=== PATIENT | male | born 1955 | race Caucasian/White ===

== ENCOUNTER 2017-01-21 09:55 | Day surgery (SDC) | payer MEDICARE, MEDICAID ==
[2017-01-20 12:20] LABS: HEMATOCRIT 43.7 % (42.0-54.0); HEMOGLOBIN 14.6 g/dL (13.5-17.5); MCH 31.1 pg (26.0-34.0); MCHC 33.4 g/dL (31.0-37.0); MEAN PLATELET VOLUME 9.2 fL (7.4-10.4); RBC 4.7 10x6/uL (4.20-6.10); RDW 13.9 % (11.5-14.5); WBC 11.5 10x3/uL (4.8-10.8)
[~2017-01-21] VITALS: Ht 180.3 cm; Wt 96.6 kg
[~2017-01-21 09:55] MED LIST: BREO ELLIPTA 11 EACH INH; CYCLOBENZAPRINE10 MG PO; EFFEXOR XR75 MG PO; LODINE500 MG PO; NEXIUM40 MG PO; NORVASC5 MG PO; PERCOCET 10/3251 TA1 PO; SINGULAIR10 MG PO; ZESTRIL20 MG PO
[2017-01-21 11:19] VITALS: BP 123/77; Ht 180.3 cm; Wt 96.6 kg
--- NOTE | 2017-01-21 17:32 | NUR ---
1615 IV DC WITH CATHER TIP INTACT
--- NOTE | 2017-02-11 13:25 | OP ---
PATIENT NAME: MITZY WELDON MEDICAL RECORD: [id number] :57 [facility] AD[facility] DATE: SURGEON: LAUREL HEIN MD DATE OF OPERATION: 01/21/2017 PREOPERATIVE DIAGNOSIS: Disc herniation L3-L4, left with bilateral L4 radiculopathy. POSTOPERATIVE DIAGNOSIS: Disc herniation L3-L4, left with bilateral L4 radiculopathy. PROCEDURES: Lumbar laminotomy, medial facetectomy and foraminotomy at L3-L4 with sublaminar decompression bilaterally with L3-L4 discectomy left, METRx retractor, and microscopic illumination. DESCRIPTION OF TECHNIQUE: After induction of general endotracheal anesthesia, the patient was rolled prone on a Benny frame. Lumbar spine was prepped and draped in usual sterile fashion. Fluoroscopic x-ray and spinal needle localized the L3-L4 interspace on the left side. A stab incision was created with a #11 blade and series of dilators were used to advance the METRx retractor at L3-L4 interspace. Level was confirmed with fluoroscopic x-ray. A microscope and Midas Hua drill were used to perform a laminotomy, medial facetectomy, and foraminotomy at L3-L4. Hypertrophied ligamentum flavum was removed with Cloward rongeurs. The dura was decompressed well on this side and there was no obvious free fragment. Disc herniation was removed with pituitary rongeurs. Additional material was removed from the disc space. The spinal canal was sent for additional disc material. Next, the METRx retractor was tilted into the spinous process. This was undermined with the Midas-Hua drill. A sublaminar decompression was carried out with Midas-Hua drill and hypertrophied ligamentum flavum was removed with Cloward rongeurs. Foraminotomy was carried out on the opposite side. Following this, the dura was decompressed well on both sides at L3 and L4 nerve roots and both sides were decompressed well. Meticulous hemostasis was maintained throughout the wound. Wound was irrigated with copious amounts of Ancef irrigant solution. The fascia was closed with 2-0 Vicryl suture, the subdermal layer was closed with 3-0 Vicryl suture. The skin was closed with lucila. A sterile dressing was applied to the wound. The patient was awakened in good condition and taken to recovery. All counts were reported as correct. Estimated blood loss was minimal. TRANSINT:[id number] Voice Confirmation ID: [id number] DOCUMENT ID: [id number] LAUREL HEIN MD at 1325 CC: [id number] DICTATION DATE: 02/04/17 1229 ROULETTE DEALER: 02/04/17 1247 [facility] 01/21/17 [place] [id number]
== END 2017-01-21 17:00 | disposition home or self-care (01) ==
LOC: D.OPS 09:55 → D.PAN 12:00 → D.OPS 12:00
PROVIDERS: Anesthesiology
DX: M51.16 Intervertebral disc disorders with radiculopathy, lumbar region (principal); Z01.812 Encounter for preprocedural laboratory examination

== ENCOUNTER 2018-09-10 05:27 | Day surgery (SDC) | payer MEDICARE, MEDICAID ==
[2018-09-09 14:31] LABS: HEMATOCRIT 38.5 % (42.0-54.0); HEMOGLOBIN 12.8 g/dL (13.5-17.5); MCH 29.4 pg (26.0-34.0); MCHC 33.2 g/dL (31.0-37.0); MCV 88.5 fL (80.0-100.0); MEAN PLATELET VOLUME 9.7 fL (7.4-10.4); RBC 4.35 10x6/uL (4.20-6.10); RDW 14.6 % (11.5-14.5); WBC 7.7 10x3/uL (4.8-10.8)
[~2018-09-10] VITALS: Ht 177.8 cm; Wt 99.8 kg
[~2018-09-10 05:27] MED LIST changes: +MOBIC7.5 MG; +PAMELOR 25 MG C25 MG PO
[2018-09-10 06:08] VITALS: BP 109/69; Ht 177.8 cm; Wt 99.8 kg
[2018-09-10] MEDS ORDERED: PERCOCET 10-321 EAC1 PO (08:20)
--- NOTE | 2018-09-10 09:32 | NUR ---
5743 PT RETURNED TO ROOM FROM PACU FULLY AWAKE. PT TO RADIOLOGY DEPT FOR CT CHEST VIA STRETCHER.
--- NOTE | 2018-09-10 16:13 | NUR ---
0950 PT BACK IN ROOM FROM CT RADIOLOGY.
--- NOTE | 2018-09-10 16:14 | NUR ---
1008 IV DC'D. CATHETER INTACT. NO BLEEDING AT SITE. BANDAID APPLIED.
--- NOTE | 2018-09-17 11:53 | OP ---
PATIENT NAME: MITZY WELDON MEDICAL RECORD: [id number] :57 LOCATION:[facility] ADMISSION DATE: SURGEON: TIMA MCCRACKEN MD DATE OF OPERATION: 09/10/2018 PREOPERATIVE DIAGNOSIS: Carpal tunnel syndrome of the left wrist. POSTOPERATIVE DIAGNOSIS: Carpal tunnel syndrome of the left wrist. PROCEDURE: Carpal tunnel release. SURGEON: Tima Mccracken MD ANESTHESIA: General. INTRAOPERATIVE COMPLICATIONS: None. SUMMARY OF PATHOLOGIC FINDINGS: The patient has a very tight transverse carpal ligament consistent with the preoperative diagnosis, EMGs, and NCVs. OPERATIVE SUMMARY IN DETAIL: After obtaining the appropriate preoperative orthopedic surgery consent as well as anesthetic consultation, evaluation and clearance, the patient was brought to the operating room and placed on the operating table in a supine position. After general laryngeal mask airway was administered, tourniquet was placed about the proximal aspect of the left upper extremity. Left upper extremity was then prepped and draped in routine sterile fashion. At this point, the appropriate timeout was taken and agreed upon by all using the appropriate patient identifiers. The arm was elevated and exsanguinated, tourniquet was inflated to 250 mmHg. Mid palmar incision was taken down to the distal aspect of the transverse carpal ligament, which was identified. A small incision was made. The median nerve was identified and protected with a freer elevator while the Carrol Light knife was utilized to release the transverse carpal ligament in its entirety. Having completed this, the wound was irrigated and closed with 4-0 Prolene. The appropriate amount of local analgesia was infiltrated in and about the area of the incision. Sterile dressings were applied. Tourniquet was deflated. The patient was awakened and taken to recovery room in stable condition. All final needle and sponge counts were correct. TRANSINT:[id number] Voice Confirmation ID: [id number] DOCUMENT ID: [id number] TIMA MCCRACKEN MD at 1153 CC: [id number] DICTATION DATE: 09/17/18 1105 ENVIRONMENTAL TECHNOLOGY PROFESSOR: 09/17/18 1117 [facility] 09/10/18 [place] [address]
== END 2018-09-10 10:31 | disposition home or self-care (01) ==
LOC: D.OPS 05:27 → D.PAN 07:30 → D.OPS 10:31
PROVIDERS: Anesthesiology; ATTEND Orthopaedic Surgery
DX: G56.02 Carpal tunnel syndrome, left upper limb (principal); Z01.812 Encounter for preprocedural laboratory examination

== ENCOUNTER → 2018-10-28 11:09 | Outpatient (CLI) | payer MEDICARE, MEDICAID ==
[2018-09-10 06:08] VITALS: BMI 31.6
[~2018-10-28 11:09] MED LIST changes: +PERCOCET 10-321 EAC1 PO
[2018-10-28 12:30] LABS: ALBUMIN 3.5 g/dL (3.4-5.0); ALKALINE PHOSPHATASE 138 U/L (46-116); ALT (SGPT) 27 U/L (10-68); BILIRUBIN - TOTAL 0.43 mg/dL (0.2-1.3); CALC OSMOLALITY 282 mosm/kg (275-300); CARBON DIOXIDE 27.1 mmol/L (21.0-32.0); CHLORIDE - SERUM 107 mmol/L (98-107); CREATININE - SERUM 0.8 mg/dL (0.6-1.3); GLUCOSE 124 mg/dL (74-106); POTASSIUM - SERUM 4.2 mmol/L (3.5-5.1); PROTEIN - SERUM 6.8 g/dL (6.4-8.2); SODIUM 141 mmol/L (136-145); UREA NITROGEN 15 mg/dL (7-18); URIC ACID 4.8 mg/dL (2.6-7.2); eGFR NON AFRICAN AMERICAN > 90 mL/min (90-120)
== END | disposition home or self-care (01) ==
LOC: D.US 11:09
PROVIDERS: ATTEND Orthopaedic Surgery
DX: R60.0 Localized edema (principal)

== ENCOUNTER → 2018-11-03 07:08 | Outpatient (CLI) | payer MEDICARE, MEDICAID ==
[2018-09-10 06:08] VITALS: BMI 31.6
== END | disposition home or self-care (01) ==
LOC: D.LAB 10-21 13:45 → D.RT 10-21 16:00 → D.LAB 07:08
PROVIDERS: ATTEND Internal Medicine Pulmonary Disease
DX: J44.9 Chronic obstructive pulmonary disease, unspecified (principal)

== ENCOUNTER → 2018-12-03 11:23 | Outpatient (CLI) | payer MEDICARE, MEDICAID ==
[2018-09-10 06:08] VITALS: BMI 31.6
[~2018-12-03 11:23] MED LIST changes: +FUROSEMIDE20 MG PO; +NEURONTIN600 MG PO
[2018-12-03 12:00] LABS: BASOPHILS 0.6 % (0-2); EOSINOPHILS 3.8 % (0-7); HEMATOCRIT 33.3 % (42.0-54.0); HEMOGLOBIN 10.4 g/dL (13.5-17.5); IMMATURE GRANULOCYTES 0.3 % (0-5); LYMPHOCYTES 27.5 % (15-50); MCH 26.9 pg (26.0-34.0); MCHC 31.2 g/dL (31.0-37.0); MEAN PLATELET VOLUME 9.2 fL (7.4-10.4); MONOCYTES 8.9 % (2-11); NEUTROPHILS 58.9 % (40-80); PLATELET COUNT 286 10x3/uL (130-400); RBC 3.87 10x6/uL (4.20-6.10); RDW 15.3 % (11.5-14.5); WBC 6.8 10x3/uL (4.8-10.8)
[2018-12-03 12:12] LABS: APPEARANCE CLEAR (CLEAR); BILIRUBIN NEGATIVE (NEGATIVE); COLOR YELLOW (YELLOW); GLUCOSE NEGATIVE (NEGATIVE); KETONE NEGATIVE (NEGATIVE); NITRITE NEGATIVE (NEGATIVE); PROTEIN NEGATIVE (NEGATIVE); SPECIFIC GRAVITY 1.015 (1.005-1.020); UROBILINOGEN NORMAL (NORMAL)
== END | disposition home or self-care (01) ==
LOC: D.LAB 11:23
PROVIDERS: ATTEND Surgery
DX: M79.89 Other specified soft tissue disorders (principal)

== ENCOUNTER → 2018-12-04 09:17 | Outpatient (CLI) | payer MEDICARE, MEDICAID ==
[2018-09-10 06:08] VITALS: BMI 31.6
--- NOTE | 2018-12-06 09:56 | EC ---
PATIENT:MITZY WELDON DATE OF SERVICE: 12/04/18 SEX: M MEDICAL RECORD: [id number] DATE OF : 57 LOCATION:[facility] AGE OF PATIENT: 63 ADMISSION DATE: 12/04/18 REFERRING PHYSICIAN: INTERPRETING PHYSICIAN: GERSON MILES MD ECHOCARDIOGRAM REPORT ECHO CHARGES 4 ECHO COMPLETE Date: 12/04/18 CLINICAL DIAGNOSIS: BILATERAL LEG SWELLING, ASSESS EF AND VALVES ECHOCARDIOGRAPHIC MEASUREMENTS (adult normal given) AC root (d.<3.7cm) 3.8 cm LV Septum d (<1.2 cm> 1.5 cm Valve Excursion 1.7 cm LV Septum (systole) 1.8 cm Left Atria (s.<4.0cm> 3.9 cm LVPW d(<1.2cm) 1.4 cm RV (d.<2.3cm) 4.2 cm LVPW (sytole) 1.6 cm LV diastole(<5.6CM) 6.0 cm MV E-F(>70mm/sec) cm LV systole 3.9 cm LVOT Diameter 2.4 cm MV exc.(>10mm) 2.6 cm Est.ejection fraction (50-75%) % DOPPLER: LVIT cm/sec A 87.0 cm/sec E 99.0 cm/sec LA cm/sec RVSP 22 mmHg LVOT 116 cm/sec AOP1/2T m/s Asc. Ao 149 cm/sec RVOT 64 cm/sec RA cm/sec PA 114 cm/sec AV Gradient Peak 8.89 mmHg AV Mean 4.79 mmHg AV Area 3.3 cm MV Gradient Peak 3.55 mmHg MV Mean 1.53 mmHg MV Area cm COMMENTS: Wood Turning Lathe Operator: 2 BUCKY RODRIGUEZ Chiropractic Care: 3 Dr. Jolly TAPE# PACS Pericardial Effusion N DATE OF SERVICE: Adequate 2-D echo, color-flow and spectral Doppler, and M-mode. LVH is present. LV internal dimensions are normal. Wall motion is normal. EF is greater than or equal to 55%. Aortic valve is tricuspid. No evidence of stenosis by Doppler interrogation. Left atrium is normal at 3.9 cm. Mitral valve shows no prolapse. Trace MR. Right-sided chambers are grossly normal. Trace TR. ECHOCARDIOGRAM REPORT [id number] MITZY WELDON TRANSINT:[id number] Voice Confirmation ID: [id number] DOCUMENT ID: [id number] GERSON MILES MD at 0956 CC: [id number] DICTATION DATE: 12/04/18 1245 BEHAVIORAL HEALTH CASE MANAGER: 12/04/18 1304 DEP CLI 12/04/18 [place] [id number] [place] [id number]
== END | disposition home or self-care (01) ==
LOC: D.ECHO 09:17
PROVIDERS: ATTEND Surgery
DX: M79.89 Other specified soft tissue disorders (principal)

== ENCOUNTER 2018-12-21 07:14 | Outpatient (CLI) | payer MEDICARE, MEDICAID ==
[~2018-12-21] VITALS: Ht 177.8 cm; Wt 109.1 kg
--- NOTE | ~2018-12-21 | HEMODYNAMI ---
PATIENT:MITZY WELDON MEDICAL RECORD: [id number] : 57 LOCATION:[facility] ADMISSION DATE: 12/21/18 Generatedon:12/21/201811:38 Patient name: MITZY WELDON Patient #: [id number] SSN: : Date of study: 12/21/2018 Page: Of Hemodynamic Procedure Report Patient Data Patient Demographics Procedure consent was obtained First Name: MITZY Gender: Male Last Name: SHIRAZ : 1955 [facility] Initial: AGUSTO Aggarwal Age: 63 year(s) Patient #: [id number] Race: Unknown Additional ID: [id number] Contact details Address: [address] [place] [address] State: [place] City: [place] [place] [place] [facility] Zip code: [address] Past Medical History Allergies: No known allergies Admission Admission Data Admission Date: 12/21/2018 Admission Time: 7:14 Height (in.): 70 BSA: 2.26 (m2) Height (cm.): 177.8 BMI: 34.44 (kg/m2) Weight (lbs.): 240 Weight (kg.): 108.86 Procedure Procedure Types Cath Procedure Peripheral Cath Diagnostic Procedure Firepot Operator And Tender Peripheral Procedures Venography Extremity Bilat Venogram Lower Ext Procedure Description Procedure Date Procedure Date: 12/21/2018 Procedure Start Time: 10:40 Procedure Staff Name Function Hermelinda Reed RT Overhauler Keven Mccarthy MD Performing Physician Malini Huggins RN Nurse SANDY ZACARIAS RT Scrub Procedure Data Cath Procedure Fluoroscopy Diagnostic fluoroscopy Total fluoroscopy Time: 5.1 time: 5.1 min min Diagnostic fluoroscopy Total fluoroscopy dose: dose: 2417 mGy 2417 mGy Contrast Material Contrast Material Type Amount (ml) Isovue 300 140 Diagnostic catheters Device Type Used For End Catheter Placement Merit ULTRA BOLUS FLUSH 5Fr 65CM catheter ([id number]) Merit ULTRA BOLUS FLUSH 5Fr 90CM catheter ([id number]) Merit Impress Zurita 5FR. 100CM catheter ([id number]) Procedure Medications Medication Administration Route Dosage Heparin Flush Bag added to field 2 bags (1000units/500ml NS) Lidocaine 1% added to field 20 Versed I.V. 1 mg Fentanyl I.V. 50 mcg Versed I.V. 1 mg Fentanyl I.V. 50 mcg Lidocaine 1% added to field 20 Versed I.V. 1 mg Fentanyl I.V. 50 mcg Versed I.V. 1 mg Fentanyl I.V. 50 mcg Hemodynamics Rest BSA: 2.26 (m2) O2 Consumption: Estimated: 268.71 (ml/min) O2 Consumption indexed : Estimated:118.9 (ml/min/m) Heart Rate: 75 (bpm) Snapshots Pre Cath Intra NCS Post Cath Vital Signs Time Heart Resp SPO2 etCO2 NIBP (mmHg) Rhythm Pain Sedation Rate (ipm) (%) (mmHg) Status Level (bpm) 10:20:24 75 14 98 31.3 124/84(97) NSR 0 (11) 10(A) , No pain 10:24:32 76 13 99 38.7 128/76(107) NSR 0 (11) 10(A) , No pain 10:28:42 76 10 99 32 130/77(106) NSR 0 (11) 10(A) , No pain 10:33:41 77 12 98 37.3 Measuring NSR 0 (11) 10(A) , No pain 10:33:43 77 14 98 35 117/74(97) NSR 0 (11) 10(A) , No pain 10:37:49 78 15 98 38.8 122/76(104) NSR 0 (11) 10(A) , No pain 10:41:53 87 15 99 23.1 124/84(95) NSR 0 (11) 10(A) , No pain 10:46:03 90 18 99 32.8 100/90(97) NSR 0 (11) 8(A) , No pain 10:49:58 75 13 98 40.2 104/88(95) NSR 0 (11) 8(A) , No pain 10:54:02 74 15 97 32.8 123/71(97) NSR 0 (11) 8(A) , No pain 10:58:07 82 11 97 38.7 117/79(100) NSR 0 (11) 8(A) , No pain 11:02:13 87 12 96 38 125/73(100) NSR 0 (11) 8(A) , No pain 11:06:23 88 12 97 39.5 119/76(91) NSR 0 (11) 8(A) , No pain 11:10:39 83 14 98 40.3 85/48(71) NSR 0 (11) 8(A) , No pain 11:13:17 89 14 98 43.2 122/78(89) NSR 0 (11) 8(A) , No pain 11:17:59 86 16 97 37.2 117/75(95) NSR 0 (11) 8(A) , No pain 11:22:05 87 11 97 44 118/76(100) NSR 0 (11) 8(A) , No pain 11:26:09 89 17 96 46.9 125/81(97) NSR 0 (11) 8(A) , No pain 11:30:17 90 12 96 40.2 128/82(110) NSR 0 (11) 8(A) , No pain 11:34:27 90 13 96 38.8 117/77(103) NSR 0 (11) 8(A) , No pain Medications Time Medication Route Dose Verified Delivered Reason Notes Effe ctiveness by by 10:22:09 Heparin Flush added 2 Keven Baca used for Bag to bags Shari Mccarthy MD procedure (1000units/500ml field BARRY NS) 10:22:19 Lidocaine 1% added 20ml Keven Baca for local to vial Shari Mccarthy MD anesthetic field 10:42:04 Versed I.V. 1 mg Keven Nayak for Joseluis Mccarthy RN sedation 10:42:15 Fentanyl I.V. 50 Keven Nayak for mcg Joseluis Mccarthy RN sedation 10:48:23 Versed I.V. 1 mg Keven Nayak for Joseluis Mccarthy RN sedation 10:48:31 Fentanyl I.V. 50 Keven Nayak for mcg Joseluis Mccarthy RN sedation 10:48:43 Lidocaine 1% added 20ml Keven Baca for local to vial Shari Mccarthy MD anesthetic field 11:17:28 Versed I.V. 1 mg Keven Nayak for Joseluis Mccarthy RN sedation 11:17:44 Fentanyl I.V. 50 Keven Nayak for Joseluis Mcgee RN sedation 11:26:15 Versed I.V. 1 mg Keven Nayak for Joseluis Mccarthy RN sedation 11:26:23 Fentanyl I.V. 50 Keven Nayak for ion Joseluis Mccarthy RN sedation Procedure Log Time Note 9:52:27 Patient Height : 70 inches 9:52:31 Patient Weight : 240 lbs 9:53:00 Use device set IR Diagnostic 9:54:39 SHEATH 5FR Republic (BXK181) opened to sterile field. 9:54:40 SHEATH 5FR Republic (GBL708) opened to sterile field. 9:54:41 DOC .035 wire (H00310) opened to sterile field. 9:54:42 Micropuncture VSI 4FR kit opened to sterile field. 9:54:43 Tegaderm 4 x 4 (1626W) opened to sterile field. 9:54:44 Sterile Angiographic Pack opened to sterile field. 9:54:45 Bag Decanter (2002S) opened to sterile field. 9:54:46 ACIST Manifold (58294) opened to sterile field. 9:54:47 ACIST Hand Control (86757) opened to sterile field. 9:54:48 ACIST Syringe (62808) opened to sterile field. 9:54:54 - 10:13:29 Time tracking: Regular hours (M-F 7:00 - 5:00) 10:13:49 Plan of Care:Hemodynamics will remain stable., Cardiac rhythm will remain stable., Comfort level will be maintained., Respiratory function will remain adequate., Patient/ family verbilizes understanding of procedure., Procedure tolerated without complication., Recovers from procedure without complications.. 10:14:00 Patient received from Outpatients to IR Alert and oriented. Tansferred to table in Prone position. 10:14:04 Signed procedure consent form obtained from patient. 10:14:24 H&P Date Dictated: 12/21/2018 Within 30 days and on chart., H&P Addendu m completed by physician on day of procedure. (MUST COMPLETE FOR ALL OUTPATIENTS). 10:14:28 Pre-procedure instructions explained to patient. 10:14:29 Pre-op teaching completed and patient verbalized understanding. 10:14:35 Family in patients room. 10:14:41 Patient NPO since Midnight. 10:15:06 Patient allergic to No known allergies 10:15:16 Is the patient allergic to Iodine/contrast media? No. 10:15:22 Is patient on blood thinner?No 10:15:26 Patient diabetic? No. 10:15:28 - 10:15:29 ----Pre-sedation anethsthesia assessment.---- 10:15:32 Previous problem with sedation/anesthesia? No ? 10:15:35 Snore? Yes 10:15:38 Sleep apnea? Yes 10:15:40 Deviated septum? No 10:15:42 Opens mouth fully? Yes 10:15:44 Sticks out tongue? Yes 10:15:55 Airway obstruction? Yes copd, asthma 10:16:00 Dentures? No ? 10:16:02 - 10:16:32 IV patent on arrival in left wrist with D5/.45%NaCl at KVO. 10:16:43 Popliteal region area was prepped with chlora-prep and draped in steril e fashion 10:16:45 - 10:17:00 TUBING Contrast Injection High Pressure (OVK010B) opened to sterile field. 10:19:25 ECG and BP/O2 sat monitors applied to patient. 10:19:27 Vital chart was started 10:19:29 Baseline sample Acquired. 10:19:31 Full Disclosure recording started 10::32 - 10:22:09 Heparin Flush Bag (1000units/500ml NS) 2 bags added to field was administered by Keven Mccarthy MD; used for procedure; Verbal order read back and verified. 10:22:19 Lidocaine 1% 20ml vial added to field was administered by Keven Mccarthy MD; for local anesthetic; Verbal order read back and verified. 10:38:54 Physician arrived 10:39:07 Final Timeout: patient, procedure, and site verified with staff and physician. All members of the team are in agreement. 10:39:07 --------ALL STOP TIME OUT------ 10:39:18 Fire Safety Assessment: A--An alcohol-based skin anteseptic being used preoperatively., C--Open oxygen or nitrous oxide is being used. 10:40:26 Maximum allowable contrast dose (3.7 X eGFR X 0.75)199.8 ml. 10:40:35 Procedure started. 10:40:49 Local anesthetic to right popliteal vein with Lidocaine 1% by Keven Mccarthy MD.INITIAL ACCESS ONLY 10:41:01 Local anesthetic to left popliteal vein with Lidocaine 1% by Keven Mccarthy MD.ADDITIONAL ACCESS 10:41:46 Venous access obtained using ultrasound guidance. 10:42:04 Versed 1 mg I.V. was administered by Malini Huggins RN; for sedation; Verbal order read back and verified. 10:42:15 Fentanyl 50 mcg I.V. was administered by Malini Huggins RN; for sedation ; Verbal order read back and verified. 10:48:23 Versed 1 mg I.V. was administered by Malini Huggins RN; for sedation; Verbal order read back and verified. 10:48:31 Fentanyl 50 mcg I.V. was administered by Malini Huggins RN; for sedation ; Verbal order read back and verified. 10:48:43 Lidocaine 1% 20ml vial added to field was administered by Keven Mccarthy MD; for local anesthetic; Verbal order read back and verified. 10:50:02 GLIDE CATHETER 5FR ANGLED 65cm (CG507) opened to sterile field. 10:56:38 Venogram performed 10:59:03 A Merit ULTRA BOLUS FLUSH 5Fr 65CM catheter ([id number]) was advanced over the wire and used for . 10:59:06 Venogram performed 11:04:07 GLIDE WIRE ANGLE 260cm (EX3351) opened to sterile field. 11:04:24 Angiodynamics Omniflush 5Fr 65cm ([id number]) opened to sterile field. 11:07:51 A Merit ULTRA BOLUS FLUSH 5Fr 90CM catheter ([id number]) was advanced over the wire and used for . 11:10:08 A Merit Impress Zurita 5FR. 100CM catheter ([id number]) was advanced over the wire and used for . 11:17:28 Versed 1 mg I.V. was administered by Malini Huggins RN; for sedation; Verbal order read back and verified. 11:17:44 Fentanyl 50 mcg I.V. was administered by Malini Huggins RN; for sedation ; Verbal order read back and verified. 11:26:15 Versed 1 mg I.V. was administered by Malini Huggins RN; for sedation; Verbal order read back and verified. 11:26:23 Fentanyl 50 mcg I.V. was administered by Malini Huggins RN; for sedation ; Verbal order read back and verified. 11:31:06 Procedure ended.(Physican Out) 11:31:14 Fluoroscopy time 05.10 minutes. 11:31:19 Fluoroscopy dose: 2417 mGy 11:31:19 Flurop Dose total: 2417 11:31:29 Contrast amount:Isovue 300 140ml. 11:35:19 Procedure and supply charges have been captured, reviewed, submitted an d are correct. 11:35:27 Report given to Outpatients. 11:36:06 Full Disclosure recording stopped Device Usage Item Name Manufacture Quantity Catalog Number Hospital Part Current M inimal Lot# / Charge Number Stock Stock Serial# Code SHEATH 5FR Terumo 2 [id number] 337071 208709 5 Republic (FUE841) DOC .035 wire Cook Medical 1 [id number] 081503 824610 5 ([id number]) Micropuncture VSI VASCULAR 1 7266V 393733 554555 5 VSI 4FR kit SOLUTIONS Tegaderm 4 x 4 3M 1 1626W 048987 567580 242720 5 (1626W) Sterile Cardinal 1 [id number] 947176 076186 5 Angiographic Health Pack Bag Decanter Microtek 1 2001S 223085 70131 718941 5 (2001S) Medical Inc. ACIST Manifold Acist Medical 1 37944 382358 386341 795941 5 (61570) Systems Inc ACIST Hand Acist Medical 1 45030 331790 721502 841509 5 Control Systems Inc (62731) ACIST Syringe Acist Medical 1 32175 677305 630742 963679 2 0 (98169) Systems Inc TUBING Linear Computer Solutions Medical 1 [id number] 123786 893860 157998 5 Contrast Injection High Pressure (TQG371X) GLIDE CATHETER Terumo 1 CG507 322127 705390 5 5FR ANGLED 65cm (CG507) Linear Computer Solutions ULTRA [employer] Medical 1 [id number] 115486 738081 5 BOLUS FLUSH 5Fr 65CM catheter ([id number]) GLIDE WIRE Terumo 1 UG4363 753750 981857 306040 5 ANGLE 260cm (TQ3633) Angiodynamics Angiodynamics 1 [id number] 181527 272779 977390 5 Omniflush 5Fr 65cm (07349851) Merit ULTRA [employer] Medical 1 [id number] 087151 088100 5 BOLUS FLUSH 5Fr 90CM catheter ([id number]) Merit Impress [employer] Medical 1 [id number] 955353 437247 5 Zurita 5FR. 100CM catheter ([id number]) Signature Audit [place] Stage Time Signature Unsigned Intra-Procedure 12/21/2018 Hermelinda Reed 11:38:41 AM RT(R) [facility] [address] [place] [address]
[~2018-12-21 07:14] MED LIST changes: -FUROSEMIDE20 MG PO; -NEURONTIN600 MG PO
[2018-12-21 07:32] LABS: BASOPHILS 0.5 % (0-2); EOSINOPHILS 3.7 % (0-7); HEMATOCRIT 36.2 % (42.0-54.0); HEMOGLOBIN 11.3 g/dL (13.5-17.5); IMMATURE GRANULOCYTES 0.7 % (0-5); LYMPHOCYTES 18.7 % (15-50); MCH 26.6 pg (26.0-34.0); MCHC 31.2 g/dL (31.0-37.0); MCV 85.2 fL (80.0-100.0); MEAN PLATELET VOLUME 9.1 fL (7.4-10.4); MONOCYTES 8.5 % (2-11); NEUTROPHILS 67.9 % (40-80); PLATELET COUNT 291 10x3/uL (130-400); RBC 4.25 10x6/uL (4.20-6.10); RDW 15.6 % (11.5-14.5); WBC 7.4 10x3/uL (4.8-10.8)
[2018-12-21 07:38] LABS: APTT 30.9 SECONDS (22.8-39.4); INR 0.95 (0.85-1.17); PROTIME 12.2 SECONDS (11.6-15.0)
[2018-12-21 07:47] LABS: ANION GAP 9.8 mmol/L (8-16); CALCIUM 8.9 mg/dL (8.5-10.1); CARBON DIOXIDE 30.9 mmol/L (21.0-32.0); CREATININE - SERUM 1.1 mg/dL (0.6-1.3); POTASSIUM - SERUM 4.7 mmol/L (3.5-5.1)
[2018-12-21] MEDS ORDERED: NEURONTIN600 MG PO (08:41)
[2018-12-21] MEDS ORDERED: FUROSEMIDE20 MG PO (08:42)
[2018-12-21 08:47] VITALS: BP 122/80; Ht 177.8 cm; Wt 109.1 kg
--- NOTE | 2018-12-21 12:04 | NUR ---
0398 SEE POST PROCEDURE CHECKLIST FOR VITAL SIGN TRENDS.
--- NOTE | 2018-12-21 14:57 | NUR ---
1445 [place] INSTS GIVEN VOICED UNDERSTANDING RELEASED IN [facility].
== END 2018-12-21 14:45 | disposition home or self-care (01) ==
LOC: D.SP 07:14 → D.LAB 07:45 → D.US 08:00 → D.RAD 10:00 → D.SP 14:45
PROVIDERS: General Practice; ATTEND Surgery
DX: I73.9 Peripheral vascular disease, unspecified (principal)

== ENCOUNTER → 2019-01-07 09:14 | Outpatient (CLI) | payer MEDICARE, MEDICAID ==
[2018-12-21 08:47] VITALS: BMI 34.5
[~2019-01-07 09:14] MED LIST changes: +FUROSEMIDE20 MG PO; +NEURONTIN600 MG PO
== END | disposition home or self-care (01) ==
LOC: D.CT 12-21 13:00
PROVIDERS: ATTEND Surgery
DX: I73.9 Peripheral vascular disease, unspecified (principal)

== ENCOUNTER → 2019-02-04 11:07 | Outpatient (CLI) | payer MEDICARE, MEDICAID ==
[2018-12-21 08:47] VITALS: BMI 34.5
== END | disposition home or self-care (01) ==
LOC: D.CT 11:00
PROVIDERS: ATTEND Internal Medicine Pulmonary Disease
DX: R91.1 Solitary pulmonary nodule (principal)

== ENCOUNTER → 2019-09-10 09:35 | Outpatient (CLI) | payer MEDICARE, MEDICAID ==
[2018-12-21 08:47] VITALS: BMI 34.5
== END | disposition home or self-care (01) ==
LOC: D.CT 09:35
PROVIDERS: ATTEND Internal Medicine Pulmonary Disease
DX: R91.1 Solitary pulmonary nodule (principal)